=== PATIENT | male | born 1940 | race Caucasian/White ===

== ENCOUNTER 2021-07-26 18:37 | Emergency (ER) | payer MEDICARE ==
[2021-07-27 00:13] LABS: Bilirubin Neg (Negative); Blood, Urine 50 (Negative); Clarity Clear (Clear); Glucose, Urine (Dipstick) Normal (Negative); Ketone, Urine Negative (Negative); Leukocyte 100 (Negative); Nitrite Negative (Negative); Protein, Urine (Dipstick) 30 mg/dl (Neg-Trace); Specific Gravity, Urine 1.015 (1.002-1.036); Urobilinogen Normal mg/dL (Less than 2)
[2021-07-27 00:19] LABS: Squamous Epithelial 0-3 HPF (0-3)
[2021-07-27 00:20] LABS: Bacteria/HPF 1+ HPF (None Seen)
[2021-07-27 00:21] LABS: Mucous/LPF Rare LPF (<2+); Transitional Epithelial 0-3 HPF (None Seen)
== END 2021-07-26 23:30 | disposition home or self-care (01) ==
LOC: CSHERS 18:37
DX: N45.2 Orchitis (principal); I10 Essential (primary) hypertension; Z87.891 Personal history of nicotine dependence; Z79.899 Other long term (current) drug therapy; R68.89 Other general symptoms and signs; Z20.822 Contact with and (suspected) exposure to COVID-19
CPT/HCPCS: 76870; 87086; 93976; 99284; U0003; U0005; 81003; 81015